=== PATIENT | female | born 1990 | race African-American/Black ===

== ENCOUNTER → 2024-04-12 | Outpatient (CLI) | payer MEDICAID, OTHER ==
[2024-04-12 15:34] LABS: HCT 34.6 % (37.2-46.3); HGB 11.1 g/dL (12.0-15.0); MCH 28.8 pg (27.0-32.0); MCHC 32.1 g/dL (32.0-37.0); MCV 89.6 FL (80.0-97.0); NRBC Per 100 WBC 0 X 10*3/uL (0.00-0.01); Platelet Count 235 X 10*3/uL (140-440); RBC 3.86 X 10*6/uL (4.10-5.20); RDW 14.1 % (11.5-14.5); WBC 6.92 X 10*3/uL (4.50-10.00)
[2024-04-12 22:12] LABS: Chol/HDL Ratio 2.51 Ratio; LDL Cholesterol,Calculated 54.5 mg/dL (0.0-131.0)
[2024-04-12 22:13] LABS: ALT 20 U/L (8-44); AST 17 U/L (13-35); Albumin 4.3 g/dL (3.8-4.9); Albumin/Globulin Ratio 1.43 Ratio (1.60-3.17); Alkaline Phosphatase 57 U/L (41-126); Blood Urea Nitrogen 11.9 mg/dL (9.0-27.0); Calcium 9.2 mg/dL (8.7-10.3); Carbon Dioxide 19.2 mmol/L (21.6-31.8); Chloride 103 mmol/L (96-109); Glucose 100 mg/dL (70-110); Potassium 4.4 mmol/L (3.5-5.5); Sodium 138 mmol/L (135-145); T4, Free (Free Thyroxine) 0.91 ng/dL (0.80-1.80); Total Bilirubin 0.5 mg/dL (0.3-1.2); Total Protein 7.3 g/dL (6.2-8.2)
== END | disposition home or self-care (01) ==
LOC: LABWHC1 08:05
PROVIDERS: ATTEND Family Medicine
DX: Z12.11 Encounter for screening for malignant neoplasm of colon (principal)
CPT/HCPCS: 36415; 80053; 80061; 82306; 83036; 84439; 84443; 85027; 86803